=== PATIENT | female | born 1980 | race Caucasian/White ===

== ENCOUNTER 2016-04-27 19:13 | Emergency (ER) | payer MEDICAID, OTHER ==
[2016-04-27 19:19] VITALS: RESP 18; TEMP 97.9
--- NOTE | 2016-04-27 19:55 | EDPHY ---
H & P Time Seen by Provider: 04/27/16 19:44 HPI/ROS: CHIEF COMPLAINT: Multiple complaints HISTORY OF PRESENT ILLNESS: This patient is a 35 year old female with a history of anxiety who presents to the Emergency Department with multiple complaints over the past two weeks including left lower leg paresthesias, mid-back pain, and hand tingling. She reports that she has been experiencing hand tingling over the past two weeks. Last night, she experienced a brief 15-minute episode of back pain followed by anterior leg numbness.Ongoing numbness on lateral aspect of LLE (atraumatic). She denies shortness of breath, chest pain, or any additional complaints. She attributes her symptoms to anxiety and reports that she had a mental health assessment last Sunday and has an appointment to follow- up on May 25. REVIEW OF SYSTEMS: Constitutional: No fever, no chills Eyes: No visual changes ENT: No sore throat Respiratory: No cough, no shortness of breath Cardiac: No chest pain Gastrointestinal: No nausea, no vomiting, no abdominal pain Genitourinary: No hematuria, no dysuria Musculoskeletal: +back and shoulder pain, resolved; no leg pain or swelling Skin: No rash Neurological: +left leg paresthesias, +hand tremors, no headache, no weakness Psychiatric: +anxious Past Medical/Surgical History: Anxiety. Social History: Works as a surgical aide. Light smoker. Smoking Status: Light smoker Physical Exam: General Appearance: Alert, anxious Eyes: Pupils equal and round, no conjunctival pallor or injection ENT, Mouth: Mucous membranes moist Neck: Normal inspection Respiratory: Lungs are clear to auscultation Cardiovascular: Regular rate and rhythm Gastrointestinal: Abdomen is soft and non- tender Neurological: A&O, nonfocal, normal gait Skin: Warm and dry, no rash Extremities: Nontender, no pedal edema Psychiatric: Anxious affect Constitutional: Initial Vital Signs Temperature (C) 36.6 C 04/27/16 19:18 Heart Rate 67 04/27/16 19:18 Respiratory Rate 18 04/27/16 19:18 Blood Pressure 135/72 H 04/27/16 19:18 O2 Sat (%) 95 04/27/16 19:18 O2 Delivery Mode Room Air Allergies/Adverse Reactions: No Known Allergies Allergy (Verified 04/27/16 19:17) Home Medications: Medication Instructions Recorded LORazepam [Ativan (RX)] 1 mg PO Q12 PRN #6 tab 04/27/16 Medical Decision Making ED Course/Re-evaluation: Multiple etiologies for sx considered, but after a prolonged discussion with the pt, I feel that her sx are mainly secondary to anxiety. The pt concurs with this assessment. 1mg PO Ativan administered for anxiety. The patient will be discharged home with take-home pack of Xanax as needed for severe anxiety. She will follow-up as planned with [facility] on . She understands customary return precautions and will be discharged home in good condition. - Data Points Medications Given: Discontinued Medications Lorazepam (Ativan) 1 mg PO EDNOW ONE Stop: 04/27/16 20:01 Last Admin: 04/27/16 20:09 Dose: 1 mg Departure - Departure Disposition: Home, Routine, Self-Care Clinical Impression: Anxiety Condition: Good Instructions: Anxiety (ED) Additional Instructions: 1. Keep your Mental Health appointment for May 25. I recommend a regimen to help yourself relax and integrate more exercise to help manage your anxiety. 2. Take Xanax as prescribed as needed for severe anxiety. 3. Return to the Emergency Department if you experience severe headache, vision or speech changes, dizziness, shortness of breath, or other serious concerns. Referrals: [facility],. [Clinic] - As per Instructions Prescriptions: LORazepam [Ativan (RX)] 1 mg PO Q12 PRN #6 tab PRN Reason: Anxiety Report Scribed for: Pooja Mccall Report Scribed by: Denise Walters Date of Report: 04/27/16 Time of Report: 19:45 Physician Review and Approval Statement: 04/27/16 19:45 Portions of this note were transcribed by a medical doctor nuclear medicine. I personally performed a history, physical exam, medical decision making, and confirmed accuracy of information the transcribed note.
[2016-04-27] MEDS ORDERED: LORazepam 1 MG TAB PO ONE (20:00)
[2016-04-27 20:21] VITALS: BP 131/75; PULSE 88; O2SAT 96
== END 2016-04-27 20:21 | disposition home or self-care (01) ==
DX: F41.9 Anxiety disorder, unspecified (principal); F17.200 Nicotine dependence, unspecified, uncomplicated